=== PATIENT | female | born 1990 | race Caucasian/White ===

== ENCOUNTER 2019-05-08 20:41 | Emergency (ER) | payer BC ==
[2019-05-08 21:08] VITALS: TEMP 100
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
[2019-05-08 22:07] VITALS: BP 104/77; O2SAT 99
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
== END 2019-05-08 23:03 | disposition home or self-care (01) ==
LOC: ER 20:41
DX: S33.5XXA Sprain of ligaments of lumbar spine, initial encounter (principal); S40.012A Contusion of left shoulder, initial encounter; S50.812A Abrasion of left forearm, initial encounter; Y04.0XXA Assault by unarmed brawl or fight, initial encounter; Y07.03 Male partner, perpetrator of maltreatment and neglect; Y92.9 Unspecified place or not applicable